=== PATIENT | male | born 1990 | race Caucasian/White ===

== ENCOUNTER 2018-02-28 18:46 | Emergency (ER) | payer SELFPAY ==
[2014-11-26 10:42] VITALS: Wt 88.9 kg
[~2018-02-28 18:46] MED LIST: AZIT1PAC23 PO; CEPH-13 PO; DICY20TA70 PO; DOCU-416 PO; DOXE100C21 PO; DOXY-179 PO; ESCI10TA8 PO; HYDR-4228 PO; HYDR10FO7 RC; IBUP-56 PO; MONT10TA22 PO; OXYC-854 PO; POLY17PO25 PO; QUE25 PO; RISP-29 PO; RISP-34 PO; VENL150T10 PO
--- NOTE | 2018-02-28 18:53 | ER Report ---
History and Physical Time Seen By MD: 18:53 HPI/ROS CHIEF COMPLAINT: Possible infected tattoo HISTORY OF PRESENT ILLNESS: This is a 27 over male who presents to the emergency department for concerns of tattoo infection. Patient states that he received a new tattoo about 3 days ago since then has had increased erythema and pain. No fevers, aches or chills. No nausea or vomiting. REVIEW OF SYSTEMS: Respiratory: No cough, no dyspnea. Cardiovascular: No chest pain, no palpitations. Gastrointestinal: No vomiting, no abdominal pain. Musculoskeletal: No back pain. Integumentary: As above. Allergies: Coded Allergies: azithromycin (Verified Allergy, Intermediate, 02/28/18) RASH TO ENTIRE BODY Home Meds Active Scripts Cephalexin 500 Mg Tab (KEFLEX 500 MG TAB) 500 Mg Tablet, 500 MG PO Q6H, #28 TAB 0 Refills Prov:MAYRA KRAFT ACETYLENE TORCH BURNER-BC 02/28/18 Reported Medications Aripiprazole (ABILIFY MAINTENA) 300 Mg Suser.vial, 300 MG IM Q30D 02/28/18 Discontinued Scripts Doxepin Hcl (DOXEPIN HCL) 100 Mg Capsule, 100 MG PO QHS, #30 CAPSULE Prov:JESSY SANON MD 07/19/17 Hydroxyzine Hcl (HYDROXYZINE HCL) 50 Mg Tablet, 50 MG PO BID Y for ANXIETY, #60 TAB Prov:JESSY SANON MD 07/19/17 Risperidone (RISPERDAL) 2 Mg Tablet, 2 MG PO QPM, #30 TAB Prov:JESSY SANON MD 07/19/17 Risperidone (RISPERDAL) 1 Mg Tablet, 1 MG PO QAM, #30 TAB Prov:JESSY SANON MD 07/19/17 Venlafaxine Hcl (VENLAFAXINE HCL ER) 150 Mg Tab.er.24, 150 MG PO QDAY, #30 TAB Prov:JESSY SANON MD 07/19/17 Past Medical/Surgical History The patient has a past medical and surgical history of IBS, broken left leg, wears glasses, anxiety, depression, hemorrhoidectomy. Reviewed Nurses Notes: Yes Hx Smoking: Yes (10/15 CIG A DAY FOR 3 YEASR ( 3 YEARS THEN A 5 YEAR BREAK) ) Smoking Status: Current: Every Day Smoker Hx Substance Use Disorder: Yes Hx Alcohol Use: Yes Constitutional Vital Sign - Last 24 Hours 02/28/18 02/28/18 18:52 19:20 Temp 98.0 98.1 Pulse 83 78 Resp 14 14 B/P (MAP) 123/78 114/73 (87) Pulse Ox 97 95 O2 Delivery Room Air Room Air Physical Exam General Appearance: The patient is alert, has no immediate need for airway protection and no current signs of toxicity. Eyes: Pupils equal and round no injection. Respiratory: Chest is non tender, lungs are clear to auscultation. Cardiac: regular rate and rhythm. Gastrointestinal: Abdomen is soft and non tender, no masses, bowel sounds normal. Musculoskeletal: Neck: Neck is supple and non tender. Extremities have full range of motion and are non tender. Skin: Erythema, cellulitis and scabs present to the distal left forearm secondary to tattoo. DIFFERENTIAL DIAGNOSIS: After history and physical exam differential diagnosis was considered for cellulitis. Medical Decision Making ED Course/Re-evaluation ED Course The patient was admitted to room. History and physical were obtained. Differential diagnoses were considered. Upon evaluation of the patient did appear that his new tattoo did have the beginning of a cellulitic infection. Did discuss this with patient. Patient was started on Keflex. Patient was instructed follow-up with his primary care provider for any other concerns. Return to ER for worsening symptoms. The patient was in agreement with this plan care and discharged home. Decision to Disposition Date: Feb 28, 2018 Decision to Disposition Time: 19:00 Depart Departure Latest Vital Signs Vital Signs Date Time Temp Pulse Resp B/P (MAP) Pulse Ox O2 Delivery O2 Flow Rate FiO2 02/28/18 19:20 98.1 78 14 114/73 (87) 95 Room Air Impression: Primary Impression: Tattoo of skin Additional Impression: Cellulitis of forearm, left Condition: Improved Disposition: HOME OR SELF-CARE New Scripts Cephalexin 500 Mg Tab (KEFLEX 500 MG TAB) 500 Mg Tablet 500 MG PO Q6H, #28 TAB 0 Refills Prov: MAYRA KRAFT ACETYLENE TORCH BURNER-BC 02/28/18 Patient Instructions: Cellulitis (ED) Additional Instructions: Drink plenty of water. Get plenty of rest. Take antibiotics as directed. Take ibuprofen or Tylenol as needed for pain. Return to the ED for any other concerns. Problem Qualifiers MAYRA KRAFT ACETYLENE TORCH BURNER-BC Feb 28, 2018 18:53
[2018-02-28] MEDS ORDERED: CEPH500T7 PO ×2 (19:03→19:08)
[2018-02-28] MEDS ORDERED: ARIP300S IM (19:06)
[2018-02-28 19:20] VITALS: BP 114/73
== END 2018-02-28 19:21 | disposition home or self-care (01) ==
LOC: ER 19:07
DX: L03.114 Cellulitis of left upper limb (principal)
CPT/HCPCS: 99281

== ENCOUNTER 2019-01-29 10:10 | Emergency (ER) | payer SELFPAY ==
[2014-11-26 10:42] VITALS: Wt 88.5 kg
[~2019-01-29 10:10] MED LIST changes: +ARIP300S IM; +CEPH500T7 PO
[2019-01-29 10:30] VITALS: BP 146/88
[2019-01-29] MEDS ORDERED: LORazepam 1 MG TAB PO ONE (11:20)
[2019-01-29 12:59] LABS: PLATELET COUNT, AUTOMATED 307 K/uL (150-450)
--- NOTE | 2019-01-29 13:00 | RADIOLOGY IMAGING REPORT ---
FACILITY: [facility] PATIENT NAME: Matt Olvera : 1990 MR: [id number] V: [id number] EXAM DATE: ORDERING PHYSICIAN: DANIEL IBARRA TECHNOLOGIST: Location: [facility] Patient: Matt Olvera : 1990 Visit/Account:[id number] Date of Sevice: 01/29/2019 EXAMINATION: CT Head without intravenous contrast HISTORY: Altered mental status. TECHNIQUE: Axial images were obtained from the skull base to the vertex without intravenous contrast . Sagittal and coronal reformatted images are also submitted. One of the following dose optimization techniques was utilized in the performance of this exam: Autom ated exposure control; adjustment of the mA and/or kV according to the patient's size; or use of an i terative reconstruction technique. Specific details can be referenced in the facility's radiology C T exam operational policy. COMPARISON: None available. FINDINGS: Brain volume: Normal. Ventricles: Negative. Acute ischemic changes: None. Hemorrhage: None. Masses / edema: None. Goins-white: Negative. White matter: Negative. Vessels: Negative. Extra-axial: Negative. Calvarium / skull base: Negative. Visualized sinuses / orbits: Negative. IMPRESSION: Normal noncontrast head CT. Report Dictated By: Ion Estrada MD at 01/29/2019 12:50 PM Report E-Signed By: Ion Estrada MD at 01/29/2019 12:53 PM [id number]
--- NOTE | 2019-01-29 13:28 | ER Report ---
History and Physical Time Seen By MD: 10:45 Hx. of Stated Complaint: pt does not know what is going on, he feels like he has been abducted by aliens. thinks people want to hurt him. mom states he has been off his psych meds for 8 months. they found him wandering the streets with no shoes on. pt states he probably has meth and maybe acid in his system. but has never had a reaction like this. HPI/ROS CHIEF COMPLAINT: Confusion, suspected substance abuse HISTORY OF PRESENT ILLNESS: Patient is a 28-year-old male here with complaints of confusion, "blacking out". Patient reportedly has a history of schizoaffective disorder, PTSD and has not been on his Abilify medication for approximately 8 months. Patient also has not been attending outpatient therapy for approximately the same amount of time after he moved to [facility]. Patient reportedly moved back into town roughly a week ago. Patient admits to us ing methamphetamine, LSD, intermittent heroin use. Patient reports that he does not recall what happened last night but he reportedly called his mother for help who accompanied the patient here today. Patient denies homicidal or suicidal ideations. He does report feeling like he is coming out of a coma, abducted by aliens last night. Patient denies trauma, pain, fevers or chills. REVIEW OF SYSTEMS: Constitutional: No fever, no chills. Eyes: No discharge. ENT: No sore throat. Cardiovascular: No chest pain, no palpitations. Respiratory: No cough, no shortness of breath. Gastrointestinal: No abdominal pain, no vomiting. Genitourinary: No hematuria. Musculoskeletal: No back pain. Skin: No rashes. Neurological: + headache, amnestic to events of last night, no focal neurological deficits on exam Allergies: Coded Allergies: azithromycin (Verified Allergy, Intermediate, 02/28/18) RASH TO ENTIRE BODY Home Meds Active Scripts Cephalexin 500 Mg Tab (KEFLEX 500 MG TAB) 500 Mg Tablet, 500 MG PO Q6H, #28 TAB 0 Refills Prov:SANDIEVALERIYMAYRA SCHULTZ [employer]-BC 02/28/18 Reported Medications Aripiprazole (ABILIFY MAINTENA) 300 Mg Suser.vial, 300 MG IM Q30D 02/28/18 Hx Smoking: Yes (05/28 CIG A DAY FOR 3 YEASR ( 3 YEARS THEN A 5 YEAR BREAK) ) Smoking Status: Current: Every Day Smoker Hx Substance Use Disorder: Yes Hx Alcohol Use: Yes Constitutional Vital Sign - Last 24 Hours 01/29/19 10:21 Temp 98.0 Pulse 93 Resp 18 B/P (MAP) 143/88 Pulse Ox 97 Physical Exam General Appearance: Patient is amnestic to events from last night, reports feeling like he is "coming out of a coma, abducted by aliens," Eyes: Pupils equal and round no pallor or injection. ENT, Mouth: Mucous membranes are moist. Respiratory: There are no retractions, lungs are clear to auscultation. Cardiovascular: Regular rate and rhythm. Gastrointestinal: Abdomen is soft and non tender, no masses, bowel sounds normal. Neurological: No focal neurological deficits on examination Skin: Warm and dry, no rashes. Musculoskeletal: Neck is supple non tender. Extremities are nontender, nonswollen and have full range of motion. DIFFERENTIAL DIAGNOSIS: After history and physical exam differential diagnosis was considered for substance abuse side effects, withdrawal, psychiatric illn ess, trauma Medical Decision Making Data Points Result Diagram: 01/29/19 1245 01/29/19 1245 Laboratory Hematology Test 01/29/19 10:19 01/29/19 12:45 Urine Color Yellow Urine Clarity Clear Urine pH 6.0 pH (4.8-9.5) Urine Specific [place] 1.012 Urine Protein Negative mg/dL (NEGATIVE) Urine Glucose (UA) Negative mg/dL (NEGATIVE) Urine Ketones Trace mg/dL (NEGATIVE) Urine Blood Negative (NEGATIVE) Urine Nitrite Negative (NEGATIVE) Urine Bilirubin Negative (NEGATIVE) Urine Urobilinogen Negative mg/dL (0.2-1.9) Urine Leukocyte Esterase Trace (NEGATIVE) Urine RBC 1 /HPF (0-2/HPF) Urine WBC 3 /HPF (0-5/HPF) Urine Squamous Epithelial Cells None /LPF (</=FEW) Urine Transitional Epithelial Cells Few /LPF (NONE-FEW) Urine Bacteria Negative /HPF (NONE-FEW) Urine Mucus Few /HPF (NONE-FEW) Urine Opiates Screen Negative Urine Barbiturates Screen Negative Ur Tricyclic Antidepressants Screen Negative Urine Phencyclidine Screen Negative Urine Amphetamines Screen Positive Urine Benzodiazepines Screen Negative Urine Cocaine Screen Negative Urine Cannabinoids Screen Negative Red Blood Count 5.02 M/uL (4.00-5.60) Mean Corpuscular Volume 93.8 fL (80.0-96.0) Mean Corpuscular Hemoglobin 32.5 pg (26.0-33.0) Mean Corpuscular Hemoglobin Concent 34.7 g/dL (32.0-36.0) Red Cell Distribution Width 13.0 % (11.5-14.5) Mean Platelet Volume 8.2 fL (7.2-11.1) Neutrophils (%) (Auto) 64.0 % (39.4-72.5) Lymphocytes (%) (Auto) 24.3 % (17.6-49.6) Monocytes (%) (Auto) 9.1 % (4.1-12.4) Eosinophils (%) (Auto) 1.6 % (0.4-6.7) Basophils (%) (Auto) 1.0 % (0.3-1.4) Nucleated RBC Relative Count (auto) 0.0 /100WBC Neutrophils # (Auto) 4.0 K/uL (2.0-7.4) Lymphocytes # (Auto) 1.5 K/uL (1.3-3.6) Monocytes # (Auto) 0.6 K/uL (0.3-1.0) Eosinophils # (Auto) 0.1 K/uL (0.0-0.5) Basophils # (Auto) 0.1 K/uL (0.0-0.1) Nucleated RBC Absolute Count (auto) 0.00 K/uL Sodium Level 142 mmol/L (137-145) Potassium Level 3.2 mmol/L (3.5-5.0) Chloride Level 104 mmol/L (98-107) Carbon Dioxide Level 23 mmol/L (22-30) Blood Urea Nitrogen 16 mg/dl (9-21) Creatinine 0.90 mg/dl (0.66-1.25) Glomerular Filtration Rate Calc > 60.0 Random Glucose 95 mg/dl (75-110) Calcium Level 9.8 mg/dl (8.4-10.2) Magnesium Level 2.1 mg/dl (1.7-2.2) Total Bilirubin 0.8 mg/dl (0.2-1.3) Aspartate Amino Transf (AST/SGOT) 19 U/L (0-35) Alanine Aminotransferase (ALT/SGPT) 35 U/L (0-56) Alkaline Phosphatase 97 U/L (0-126) Total Protein 8.5 g/dl (6.3-8.2) Albumin 4.8 g/dl (3.5-5.0) Salicylates Level < 10 mg/L Salicylate Last Dose Date unknown Acetaminophen Level < 10 ug/ml Serum Alcohol < 10 mg/dl Chemistry Test 01/29/19 10:19 01/29/19 12:45 Urine Color Yellow Urine Clarity Clear Urine pH 6.0 pH (4.8-9.5) Urine Specific [place] 1.012 Urine Protein Negative mg/dL (NEGATIVE) Urine Glucose (UA) Negative mg/dL (NEGATIVE) Urine Ketones Trace mg/dL (NEGATIVE) Urine Blood Negative (NEGATIVE) Urine Nitrite Negative (NEGATIVE) Urine Bilirubin Negative (NEGATIVE) Urine Urobilinogen Negative mg/dL (0.2-1.9) Urine Leukocyte Esterase Trace (NEGATIVE) Urine RBC 1 /HPF (0-2/HPF) Urine WBC 3 /HPF (0-5/HPF) Urine Squamous Epithelial Cells None /LPF (</=FEW) Urine Transitional Epithelial Cells Few /LPF (NONE-FEW) Urine Bacteria Negative /HPF (NONE-FEW) Urine Mucus Few /HPF (NONE-FEW) Urine Opiates Screen Negative Urine Barbiturates Screen Negative Ur Tricyclic Antidepressants Screen Negative Urine Phencyclidine Screen Negative Urine Amphetamines Screen Positive Urine Benzodiazepines Screen Negative Urine Cocaine Screen Negative Urine Cannabinoids Screen Negative White Blood Count 6.3 k/uL (4.5-11.0) Red Blood Count 5.02 M/uL (4.00-5.60) Hemoglobin 16.3 g/dL (14.0-18.0) Hematocrit 47.1 % (42.0-52.0) Mean Corpuscular Volume 93.8 fL (80.0-96.0) Mean Corpuscular Hemoglobin 32.5 pg (26.0-33.0) Mean Corpuscular Hemoglobin Concent 34.7 g/dL (32.0-36.0) Red Cell Distribution Width 13.0 % (11.5-14.5) Platelet Count 307 K/uL (150-450) Mean Platelet Volume 8.2 fL (7.2-11.1) Neutrophils (%) (Auto) 64.0 % (39.4-72.5) Lymphocytes (%) (Auto) 24.3 % (17.6-49.6) Monocytes (%) (Auto) 9.1 % (4.1-12.4) Eosinophils (%) (Auto) 1.6 % (0.4-6.7) Basophils (%) (Auto) 1.0 % (0.3-1.4) Nucleated RBC Relative Count (auto) 0.0 /100WBC Neutrophils # (Auto) 4.0 K/uL (2.0-7.4) Lymphocytes # (Auto) 1.5 K/uL (1.3-3.6) Monocytes # (Auto) 0.6 K/uL (0.3-1.0) Eosinophils # (Auto) 0.1 K/uL (0.0-0.5) Basophils # (Auto) 0.1 K/uL (0.0-0.1) Nucleated RBC Absolute Count (auto) 0.00 K/uL Glomerular Filtration Rate Calc > 60.0 Calcium Level 9.8 mg/dl (8.4-10.2) Magnesium Level 2.1 mg/dl (1.7-2.2) Total Bilirubin 0.8 mg/dl (0.2-1.3) Aspartate Amino Transf (AST/SGOT) 19 U/L (0-35) Alanine Aminotransferase (ALT/SGPT) 35 U/L (0-56) Alkaline Phosphatase 97 U/L (0-126) Total Protein 8.5 g/dl (6.3-8.2) Albumin 4.8 g/dl (3.5-5.0) Salicylates Level < 10 mg/L Salicylate Last Dose Date unknown Acetaminophen Level < 10 ug/ml Serum Alcohol < 10 mg/dl Toxicology Test 01/29/19 10:19 01/29/19 12:45 Urine Opiates Screen Negative Urine Barbiturates Screen Negative Ur Tricyclic Antidepressants Screen Negative Urine Phencyclidine Screen Negative Urine Amphetamines Screen Positive Urine Benzodiazepines Screen Negative Urine Cocaine Screen Negative Urine Cannabinoids Screen Negative Salicylates Level < 10 mg/L Salicylate Last Dose Date unknown Acetaminophen Level < 10 ug/ml Serum Alcohol < 10 mg/dl Urinalysis Test 01/29/19 10:19 Urine Color Yellow Urine Clarity Clear Urine pH 6.0 pH (4.8-9.5) Urine Specific [place] 1.012 Urine Protein Negative mg/dL (NEGATIVE) Urine Glucose (UA) Negative mg/dL (NEGATIVE) Urine Ketones Trace mg/dL (NEGATIVE) Urine Blood Negative (NEGATIVE) Urine Nitrite Negative (NEGATIVE) Urine Bilirubin Negative (NEGATIVE) Urine Urobilinogen Negative mg/dL (0.2-1.9) Urine Leukocyte Esterase Trace (NEGATIVE) Urine RBC 1 /HPF (0-2/HPF) Urine WBC 3 /HPF (0-5/HPF) Urine Squamous Epithelial Cells None /LPF (</=FEW) Urine Transitional Epithelial Cells Few /LPF (NONE-FEW) Urine Bacteria Negative /HPF (NONE-FEW) Urine Mucus Few /HPF (NONE-FEW) EKG/Imaging Imaging PATIENT NAME: Matt Olvera : 1990 MR: [id number] V: [id number] EXAM DATE: [id number] ORDERING PHYSICIAN: DANIEL IBARRA TECHNOLOGIST: Location: [facility] Patient: Matt Olvera : 1990 Visit/Account:[id number] Date of Sevice: 01/29/2019 EXAMINATION: CT Head without intravenous contrast HISTORY: Altered mental status. TECHNIQUE: Axial images were obtained from the skull base to the vertex without intravenous contrast. Sagittal and coronal reformatted images are also submitted. One of the following dose optimization techniques was utilized in the performance of this exam: Automated exposure control; adjustment of the mA and/or kV according to the patient's size; or use of an iterative reconstruction technique. Specific details can be referenced in the facility's radiology CT exam operational policy. COMPARISON: None available. FINDINGS: Brain volume: Normal. Ventricles: Negative. Acute ischemic changes: None. Hemorrhage: None. Masses / edema: None. Goins-white: Negative. White matter: Negative. Vessels: Negative. Extra-axial: Negative. Calvarium / skull base: Negative. Visualized sinuses / orbits: Negative. IMPRESSION: Normal noncontrast head CT. ED Course/Re-evaluation ED Course Patient is a 28-year-old male here with complaints of headaches, confusion, amnesia to events from last night. Patient reports that he has been using methamphetamine, acid, intermittent heroin. Patient has not been on his Abilify for the past 8 months and has not been following with therapy for around the same period of time. Labs were unremarkable, CT head showed no acute intracranial findings. Patient was evaluated by the behavioral health small electric engine technician and the patient and the patient's mother decided to pursue outpatient treatment with [facility]. Patient denied homicidal or suicidal ideations. I explained that they could always return for evaluation for admission at any time and they voiced understanding. Patient was stable at time of discharge. Return pre cautions provided. Decision to Disposition Date: Jan 29, 2019 Decision to Disposition Time: 13:24 Depart Departure Latest Vital Signs Vital Signs Date Time Temp Pulse Resp B/P (MAP) Pulse Ox O2 Delivery O2 Flow Rate FiO2 01/29/19 10:21 98.0 93 18 143/88 97 Impression: Primary Impression: Substance abuse Additional Impression: Delirium Condition: Improved Disposition: HOME OR SELF-CARE Patient Instructions: Acute Delirium (ED) Additional Instructions: Please drink plenty of water. Please follow-up with [facility] as soon as possible for outpatient treatment and support. Please return promptly if you develop thoughts of self-harm, harming others, change in mental status, confusion. Please consider checking into a rehabilitation program or other means for substance abuse cessation. Problem Qualifiers DANIEL IBARRA DO Jan 29, 2019 13:28
== END 2019-01-29 13:39 | disposition home or self-care (01) ==
LOC: ER 10:41
DX: F15.10 Other stimulant abuse, uncomplicated (principal); R41.0 Disorientation, unspecified
CPT/HCPCS: 70450; 80305; 80320; 80329; 81001; 82040; 82247; 82310; 82374; 82435; 82565; 82947; 83735; 84075; 84132; 84155; 84295; 84443; 84450; 84460; 84520; 85025; 99284